=== PATIENT | female | born 1960 | race Caucasian/White ===

== ENCOUNTER → 2016-03-30 | Outpatient (CLI) | payer OTHER ==
[~2016-03-30] MED LIST: ALPRAZOLAM PO; AMBIEN5 MG PO; AMLODIPINE5 MG PO; CLONAZEPAM0.5 M1 PO; DOXYCYCLINE MO100 MG PO; DOXYCYCLINE100 M3 PO; HYDROXYCHLOROQ200 MG PO; LACRI LUBE1 OIN OP; LEXAPRO10 MG PO; MULTIPLE VITAMI1 CAP PO; NORETHINDRONE5 MG PO; PLAQUENIL 200M200 MG PO; REFRESH CONTACT12 ML OP; REFRESH LIQUIGEL; RESTASIS 0.4 M0.4 ML OD; RESTORIL15 MG PO; SINGULAIR5 MG PO; [UNRECOGNIZED DRUG - OTHER] PO
== END ==
LOC: BHSO 13:00
DX: F33.42 Major depressive disorder, recurrent, in full remission (principal)

== ENCOUNTER → 2016-05-25 | Outpatient (CLI) | payer OTHER | LOC: BHSO 13:40 | DX: F33.41 Major depressive disorder, recurrent, in partial remission (principal) ==

== ENCOUNTER → 2016-06-08 | Outpatient (CLI) | payer OTHER | LOC: BHSO 14:38 | DX: F31.81 Bipolar II disorder (principal) ==

== ENCOUNTER → 2016-07-06 | Outpatient (CLI) | payer OTHER | LOC: BHSO 14:39 | DX: F33.1 Major depressive disorder, recurrent, moderate (principal) ==

== ENCOUNTER → 2016-07-20 | Outpatient (CLI) | payer OTHER | LOC: BHSO 13:38 | DX: F33.41 Major depressive disorder, recurrent, in partial remission (principal) ==

== ENCOUNTER → 2016-08-03 | Outpatient (CLI) | payer OTHER | LOC: BHSO 14:53 | DX: F33.41 Major depressive disorder, recurrent, in partial remission (principal) ==

== ENCOUNTER → 2016-08-21 | Outpatient (CLI) | payer OTHER | LOC: BHSO 14:18 | DX: F31.81 Bipolar II disorder (principal) ==

== ENCOUNTER → 2016-09-10 | Outpatient (CLI) | payer OTHER | LOC: BHSO 14:43 | DX: F31.32 Bipolar disorder, current episode depressed, moderate (principal) ==

== ENCOUNTER → 2016-09-25 | Outpatient (CLI) | payer OTHER | LOC: BHSO 13:22 | DX: F33.2 Major depressive disorder, recurrent severe without psychotic features (principal) ==

== ENCOUNTER → 2016-10-09 | Outpatient (CLI) | payer OTHER | LOC: BHSO 14:18 | DX: F33.1 Major depressive disorder, recurrent, moderate (principal) ==

== ENCOUNTER → 2016-10-30 | Outpatient (CLI) | payer OTHER | LOC: BHSO 10:26 | DX: F33.1 Major depressive disorder, recurrent, moderate (principal) ==

== ENCOUNTER → 2016-11-23 | Outpatient (CLI) | payer OTHER | LOC: BHSO 14:26 | DX: F33.1 Major depressive disorder, recurrent, moderate (principal) ==

== ENCOUNTER → 2016-12-07 | Outpatient (CLI) | payer OTHER | LOC: BHSO 14:22 | DX: F33.41 Major depressive disorder, recurrent, in partial remission (principal) ==

== ENCOUNTER → 2017-01-05 | Outpatient (CLI) | payer OTHER | LOC: BHSO 14:35 | DX: F33.1 Major depressive disorder, recurrent, moderate (principal) ==

== ENCOUNTER → 2017-01-25 | Outpatient (CLI) | payer OTHER | LOC: MC.RAD 12:55 | DX: Z12.31 Encounter for screening mammogram for malignant neoplasm of breast (principal) ==

== ENCOUNTER → 2017-02-03 | Outpatient (CLI) | payer OTHER | LOC: BHSO 13:59 | DX: F33.1 Major depressive disorder, recurrent, moderate (principal) ==

== ENCOUNTER → 2017-02-22 | Outpatient (CLI) | payer OTHER | LOC: BHSO 14:40 | DX: F33.1 Major depressive disorder, recurrent, moderate (principal) ==

== ENCOUNTER → 2017-04-02 | Outpatient (CLI) | payer OTHER | LOC: BHSO 14:16 | DX: F33.41 Major depressive disorder, recurrent, in partial remission (principal) | CPT/HCPCS: G0463 ==

== ENCOUNTER → 2017-05-03 | Outpatient (CLI) | payer OTHER | LOC: BHSO 14:15 | DX: F33.41 Major depressive disorder, recurrent, in partial remission (principal) | CPT/HCPCS: G0463 ==

== ENCOUNTER → 2017-06-08 | Outpatient (CLI) | payer OTHER | LOC: BHSO 14:36 | DX: F33.41 Major depressive disorder, recurrent, in partial remission (principal) | CPT/HCPCS: G0463 ==

== ENCOUNTER → 2017-06-12 | Emergency (ER) | payer OTHER ==
[~2017-06-12] VITALS: Ht 172.7 cm; Wt 75.0 kg
[~2017-06-12] MED LIST changes: +BRINTELLIX20 PO; +COUMADIN 1MG1 MG/TAB; +FETZIMA40 PO; +KLONOPIN 1MG1 MG PO; +SEROQUEL 1100 MG/TAB PO
[2017-06-12 08:59] VITALS: TEMP 97
[2017-06-12 09:10] LABS: BASO % 0.9 % (0.0-2.0); EOS # 0.1 (0.0-0.7); GRAN # 2.3 (1.4-6.5); GRAN % 67.8 % (42.2-75.2); LYMPH # 0.7 (1.2-3.4); LYMPH % 19.7 % (20.0-51.0); MEAN CELL VOLUME 92 fl (80.0-100.0); MEAN CORPUSCULAR HGB CONC 33 g/dl (33.0-37.0); MEAN PLATELET VOLUME 9.5 fl (7.4-10.4); MONO # 0.3 (0.1-0.6); MONO % 9.3 % (1.7-9.3); PLATELET COUNT 259 K/mm3 (130-400); REDCELL DISTRIBUTION WIDTH-CV 12.3 % (11.5-14.5)
[2017-06-12 09:12] LABS: HEMATOCRIT 35.1 % (37.0-47.0); HEMOGLOBIN 11.7 g/dl (12.5-16.0); MEAN CORPUSCULAR HEMOGLOBIN 31 pg (27.0-31.0)
[2017-06-12 09:17] LABS: INR 2.5 (0.8-3.0); PROTHROMBIN TIME 29.9 SECONDS (9.7-12.8)
[2017-06-12 09:20] LABS: COLLECTION METHOD CLEAN CATCH
[2017-06-12 09:24] LABS: ALANINE AMINOTRANSFERASE 45 U/L (9-52); ALBUMIN 3.8 gm/dL (3.5-5.0); ALKALINE PHOSPHATASE 44 U/L (50-136); ANION GAP 11 mmol/L (7-16); AST,SGOT 53 U/L (15-37); BILIRUBIN,TOTAL 0.4 mg/dL (0.0-1.0); BLOOD UREA NITROGEN 22 mg/dL (7-17); CARBON DIOXIDE 26 mmol/L (22-30); CHLORIDE 102 mmol/L (98-107); CREATININE, serum 0.81 mg/dL (0.52-1.25); GLUCOSE 92 mg/dL (74-106); POTASSIUM 4.7 mmol/L (3.4-5.0); SODIUM 139 mmol/L (137-145); TOTAL PROTEIN 7.8 gm/dL (6.4-8.2)
[2017-06-12 09:30] LABS: ARTERIAL BLD GAS O2 SATURATION 95.8 % (92-100); ARTERIAL BLD GAS TCO2 CT 29.4; ARTERIAL BLOOD GAS BASE EXCESS 1.1 (-2-2); ARTERIAL BLOOD GAS HCO3 27.7 meq/L (22-26); ARTERIAL BLOOD GAS PCO2 53.1 mmHg (35-45); ARTERIAL BLOOD GAS PO2 89.7 mmHg (80-100); ARTERIAL BLOOD GAS pH 7.34 (7.35-7.45)
[2017-06-12 09:37] LABS: TRICYCLIC ANTIDEPRESS URINE POSITIVE
[2017-06-12 09:37] LABS: ACETAMINOPHEN < 10 ug/mL (10-30); ALCOHOL(ethanol),MEDICAL < 10 mg/dL; SALICYLATE < 1.0 mg/dL; TROPONIN-I < 0.012 ng/mL (0.000-0.034)
[2017-06-12 09:41] LABS: AMORPHOUS CRYSTAL Present /uL; HYALINE CAST >12 /lpf; MUCOUS Present /lpf; PH 5 (5-8); SQUAMOUS EPITHELIAL 0-2 /hpf; URINE APPEARANCE Cloudy; URINE BACTERIA Rare /hpf; URINE BILIRUBIN Negative (NEGATIVE); URINE BLOOD Negative (NEGATIVE); URINE COLOR Amber; URINE GLUCOSE Negative (NEGATIVE); URINE KETONE Negative (NEGATIVE); URINE LEUKOCYTE ESTERASE Negative (NEGATIVE); URINE NITRATE Negative (NEGATIVE); URINE PROTEIN(semi-quant) 2+ (NEGATIVE); URINE RBC 0-2 /hpf; URINE UROBILINOGEN Negative (NEGATIVE)
[2017-06-12 10:42] LABS: ARTERIAL BLD GAS O2 SATURATION 96.5 % (92-100); ARTERIAL BLOOD GAS BASE EXCESS -2.7 (-2-2); ARTERIAL BLOOD GAS HCO3 19.2 meq/L (22-26); ARTERIAL BLOOD GAS PCO2 25.7 mmHg (35-45); ARTERIAL BLOOD GAS PO2 84.6 mmHg (80-100); ARTERIAL BLOOD GAS pH 7.49 (7.35-7.45)
[2017-06-12 10:52] VITALS: BP 160/54; PULSE 54
== END ==
LOC: COL.ER → EDBD 08:58 → COL.ER 09:01
PROVIDERS: Emergency Medicine
DX: T14.91XA Suicide attempt, initial encounter (principal); T54.2X2A Toxic effect of corrosive acids and acid-like substances, intentional self-harm, initial encounter; I10 Essential (primary) hypertension; F32.9 Major depressive disorder, single episode, unspecified; Z86.718 Personal history of other venous thrombosis and embolism; Z79.01 Long term (current) use of anticoagulants
CPT/HCPCS: J0330; J7030

== ENCOUNTER 2018-03-15 13:58 | Emergency (ER) | payer OTHER ==
[~2018-03-15] VITALS: Ht 172.7 cm; Wt 70.5 kg
[2018-03-15 14:25] LABS: MEAN CELL VOLUME 94 fl (80.0-100.0); MEAN CORPUSCULAR HEMOGLOBIN 32 pg (27.0-31.0); MEAN CORPUSCULAR HGB CONC 34 g/dl (33.0-37.0); MEAN PLATELET VOLUME 9.8 fl (7.4-10.4); PLATELET COUNT 202 K/mm3 (130-400); RED BLOOD COUNT 3.46 M/mm3 (4.10-5.30); REDCELL DISTRIBUTION WIDTH-CV 12.2 % (11.5-14.5)
[2018-03-15 14:30] LABS: INR 2.5 (0.8-3.0); PROTHROMBIN TIME 28.6 SECONDS (9.7-12.8)
[2018-03-15 14:31] LABS: HEMATOCRIT 32.4 % (37.0-47.0)
[2018-03-15 14:55] LABS: BAND 6 % (0-10); LYMPHOCYTE 4 % (20.0-51.0); NEUTROPHILS 88 % (42.0-75.2); PLATELET ESTIMATE NORMAL (NORMAL)
[2018-03-15 15:50] VITALS: BP 105/79; PULSE 94
[2018-03-15 16:00] LABS: ALANINE AMINOTRANSFERASE 42 U/L (9-52); ALKALINE PHOSPHATASE 37 U/L (50-136); ANION GAP 3 mmol/L (7-16); AST,SGOT 50 U/L (15-37); BILIRUBIN,TOTAL 0.1 mg/dL (0.0-1.0); BLOOD UREA NITROGEN 15 mg/dL (7-17); CALCIUM 6.7 mg/dL (8.4-10.2); CARBON DIOXIDE 18 mmol/L (22-30); CHLORIDE 117 mmol/L (98-107); GLUCOSE 124 mg/dL (74-106); LIPASE 323 U/L (23-300); POTASSIUM 4.2 mmol/L (3.4-5.0); SODIUM 138 mmol/L (137-145); TOTAL PROTEIN 4.7 gm/dL (6.4-8.2)
[2018-03-15 16:01] LABS: ACETAMINOPHEN < 10 ug/mL (10-30); ALCOHOL(ethanol),MEDICAL < 10 mg/dL; SALICYLATE < 1.0 mg/dL
== END 2018-03-15 16:15 | disposition short-term general hospital (02) ==
LOC: COL.ER 13:58
PROVIDERS: Emergency Medicine
DX: S09.90XA Unspecified injury of head, initial encounter (principal); S70.02XA Contusion of left hip, initial encounter; I95.9 Hypotension, unspecified; Z23 Encounter for immunization; Z86.711 Personal history of pulmonary embolism; Z79.01 Long term (current) use of anticoagulants; Z91.5 Personal history of self-harm
CPT/HCPCS: C9132; J0330; J0690; J1200; J3010; J7030; P9016

== ENCOUNTER → 2018-05-23 | Outpatient (CLI) | payer OTHER | LOC: MC.RAD 10:21 | DX: Z12.31 Encounter for screening mammogram for malignant neoplasm of breast (principal) ==

== ENCOUNTER 2018-07-08 11:43 | Emergency (ER) | payer OTHER ==
[~2018-07-08] VITALS: Ht 167.6 cm; Wt 68.2 kg
[2018-07-08 11:48] VITALS: TEMP 98.1
[2018-07-08] MEDS ORDERED: LAMICTAL200 MG PO (11:57)
[2018-07-08] MEDS ORDERED: COUMADIN 5MG5 MG/TAB PO (11:57)
[2018-07-08] MEDS ORDERED: VYVANSE70 MG PO (11:58)
[2018-07-08] MEDS ORDERED: PREDFORTE5ML OU (11:59)
[2018-07-08] MEDS ORDERED: NP THYROID90 MG PO (12:14)
[2018-07-08] MEDS ORDERED: DESYREL 100MG100 MG PO (12:15)
[2018-07-08] MEDS ORDERED: TESTOSTERONE CREAM (12:18)
[2018-07-08] MEDS ORDERED: LASIX 20MG TABL20 MG PO (12:19)
[2018-07-08] MEDS ORDERED: DOXYCYCLINE HY100 MG PO (12:20)
[2018-07-08] MEDS ORDERED: NORVASC 5MG5 MG/TAB PO (12:21)
[2018-07-08] MEDS ORDERED: PLAQUENIL 200M200 MG PO (12:21)
[2018-07-08] MEDS ORDERED: LOTENSIN 1010 MG/TAB PO (12:22)
[2018-07-08 12:38] LABS: COLLECTION METHOD CLEAN CATCH
[2018-07-08 13:05] LABS: MUCOUS Present /lpf; PH 5 (5-8); URINE APPEARANCE Hazy; URINE BACTERIA Rare /hpf; URINE BILIRUBIN Negative (NEGATIVE); URINE BLOOD Negative (NEGATIVE); URINE COLOR Yellow; URINE GLUCOSE Negative (NEGATIVE); URINE KETONE Negative (NEGATIVE); URINE LEUKOCYTE ESTERASE 1+ (NEGATIVE); URINE NITRATE Negative (NEGATIVE); URINE PROTEIN(semi-quant) Negative (NEGATIVE); URINE UROBILINOGEN Negative (NEGATIVE)
[2018-07-08 14:20] VITALS: BP 145/73; PULSE 80
== END 2018-07-08 14:20 | disposition home or self-care (01) ==
LOC: COL.ER 11:43
PROVIDERS: Emergency Medicine
DX: R42 Dizziness and giddiness (principal); Z79.01 Long term (current) use of anticoagulants

== ENCOUNTER → 2018-10-13 | Outpatient (CLI) | payer OTHER ==
[~2018-10-13] MED LIST changes: +COUMADIN 5MG5 MG/TAB PO; +DESYREL 100MG100 MG PO; +DOXYCYCLINE HY100 MG PO; +LAMICTAL200 MG PO; +LASIX 20MG TABL20 MG PO; +LOTENSIN 1010 MG/TAB PO; +NORVASC 5MG5 MG/TAB PO; +NP THYROID90 MG PO; +PREDFORTE5ML OU; +TESTOSTERONE CREAM; +VYVANSE70 MG PO
== END ==
LOC: COL.RAD 08:50
DX: R42 Dizziness and giddiness (principal); R20.2 Paresthesia of skin; R13.10 Dysphagia, unspecified; R53.83 Other fatigue
CPT/HCPCS: A9585

== ENCOUNTER → 2018-11-21 | Outpatient (CLI) | payer OTHER | LOC: COL.RAD 11:15 | DX: M47.812 Spondylosis without myelopathy or radiculopathy, cervical region (principal); M48.02 Spinal stenosis, cervical region; G95.89 Other specified diseases of spinal cord; M51.34 Other intervertebral disc degeneration, thoracic region; G62.9 Polyneuropathy, unspecified | CPT/HCPCS: A9585 ==

== ENCOUNTER 2019-02-15 13:00 | Outpatient (RCR) | payer OTHER | END 2019-02-19 | disposition home or self-care (01) | LOC: WSPT | DX: F33.9 Major depressive disorder, recurrent, unspecified (principal); R26.89 Other abnormalities of gait and mobility; R20.2 Paresthesia of skin; R13.10 Dysphagia, unspecified ==

== ENCOUNTER 2019-02-22 13:45 | Outpatient (RCR) | payer OTHER | END 2019-05-21 | disposition still patient (30) | LOC: WSPT | DX: R26.89 Other abnormalities of gait and mobility (principal) ==

== ENCOUNTER → 2019-07-13 | Outpatient (CLI) | payer OTHER | LOC: MC.RAD 05-25 10:00 | DX: Z12.31 Encounter for screening mammogram for malignant neoplasm of breast (principal) ==

== ENCOUNTER 2020-05-30 10:30 | Outpatient (RCR) | payer BC | END 2020-06-07 08:49 | disposition home or self-care (01) | LOC: WSPT 10:30 | DX: G72.41 Inclusion body myositis [IBM] (principal) ==

== ENCOUNTER → 2020-07-15 | Outpatient (CLI) | payer BC | LOC: MC.RAD 11:15 | DX: Z12.31 Encounter for screening mammogram for malignant neoplasm of breast (principal) ==

== ENCOUNTER 2021-04-03 12:58 | Emergency (ER) | payer BC ==
[~2021-04-03] VITALS: Ht 167.6 cm; Wt 70.5 kg
[2021-04-03 14:51] LABS: INR 2.6 (0.8-3.0); PROTHROMBIN TIME 28.8 SECONDS (9.7-12.8)
[2021-04-03 15:30] VITALS: BP 132/74; PULSE 81; TEMP 98.3
== END 2021-04-03 15:30 | disposition home or self-care (01) ==
LOC: COL.ER 12:58
PROVIDERS: Nurse Practitioner
DX: S00.03XA Contusion of scalp, initial encounter (principal); I10 Essential (primary) hypertension; F41.9 Anxiety disorder, unspecified; F32.A Depression, unspecified; Z86.718 Personal history of other venous thrombosis and embolism; Z79.01 Long term (current) use of anticoagulants; Z79.899 Other long term (current) drug therapy; W01.198A Fall on same level from slipping, tripping and stumbling with subsequent striking against other object, initial encounter

== ENCOUNTER → 2021-07-17 | Outpatient (CLI) | payer BC | LOC: MC.RAD 09:30 | DX: Z12.31 Encounter for screening mammogram for malignant neoplasm of breast (principal) ==

== ENCOUNTER 2022-04-21 14:05 | Emergency (ER) | payer BC ==
[~2022-04-21] VITALS: Ht 167.6 cm; Wt 73.2 kg
[2022-04-21 14:09] VITALS: TEMP 98.2
[2022-04-21 14:56] LABS: BASO % 0.6 % (0.0-2.0); EOS # 0.1 K/mm3 (0.0-0.7); GRAN # 3.3 K/mm3 (1.4-6.5); GRAN % 60.8 % (42.2-75.2); HEMATOCRIT 26.9 % (37.0-47.0); HEMOGLOBIN 9.2 g/dl (12.5-16.0); LYMPH # 1.4 K/mm3 (1.2-3.4); LYMPH % 26.2 % (20.0-51.0); MEAN CELL VOLUME 94 fl (80.0-100.0); MEAN CORPUSCULAR HEMOGLOBIN 32 pg (27-31); MEAN CORPUSCULAR HGB CONC 34 g/dl (33.0-37.0); MEAN PLATELET VOLUME 9.4 fl (7.4-10.4); MONO # 0.5 K/mm3 (0.1-0.6); PLATELET COUNT 201 K/mm3 (130-400); RED BLOOD COUNT 2.87 M/mm3 (4.10-5.30); REDCELL DISTRIBUTION WIDTH-CV 13.2 % (11.5-14.5)
[2022-04-21 15:04] LABS: INR 1.7 (0.8-3.0); PROTHROMBIN TIME 19.8 SECONDS (9.7-12.8)
[2022-04-21 15:10] LABS: ALBUMIN 3.3 gm/dL (3.4-4.8); BILIRUBIN,TOTAL 0.5 mg/dL (0.2-1.2); CALCIUM 9.1 mg/dL (8.4-10.2); CREATININE, serum 0.66 mg/dL (0.57-1.11); POTASSIUM 3.9 mmol/L (3.5-4.5); TOTAL PROTEIN 7.7 gm/dL (6.2-8.1)
[2022-04-21] MEDS ORDERED: LOVENOX 100100 MG/ML SQ (16:09)
[2022-04-21 16:23] VITALS: BP 119/66; PULSE 62
== END 2022-04-21 16:52 | disposition home or self-care (01) ==
LOC: COL.ER 14:05
PROVIDERS: Physician Assistant
DX: I82.4Y1 Acute embolism and thrombosis of unspecified deep veins of right proximal lower extremity (principal)
CPT/HCPCS: J1650

== ENCOUNTER 2023-04-12 14:30 | Outpatient (RCR) | payer BC ==
[~2023-04-12 14:30] MED LIST changes: +LOVENOX 100100 MG/ML SQ
== END 2023-04-14 | disposition home or self-care (01) ==
LOC: PT.GENESIS
DX: M25.571 Pain in right ankle and joints of right foot (principal)

== ENCOUNTER 2023-04-13 09:30 | Outpatient (RCR) | payer BC | END 2023-04-14 | disposition home or self-care (01) | LOC: WSOT | DX: G72.41 Inclusion body myositis [IBM] (principal) ==

== ENCOUNTER 2023-04-29 10:15 | Outpatient (RCR) | payer BC | END 2023-05-13 | disposition still patient (30) | LOC: PT.GENESIS | DX: M25.571 Pain in right ankle and joints of right foot (principal) ==

== ENCOUNTER 2023-05-11 11:00 | Outpatient (RCR) | payer BC | END 2023-05-13 | disposition home or self-care (01) | LOC: WSOT | DX: G72.41 Inclusion body myositis [IBM] (principal) ==